=== PATIENT | male | born 1970 | race Two or more races ===

== ENCOUNTER 2024-11-13 21:45 | Emergency (ER) | payer OTHER ==
[~2024-11-13] VITALS: Ht 180.3 cm; Wt 95.5 kg
--- NOTE | 2024-11-13 22:24 | ED.PDOC ---
History of Present Illness HPI Comments 54-year-old male presents with complaint of right shoulder pain, with associated decreased range of motion, after lifting a heavy object at 8:30 p.m., this evening. He denies any history of prior injuries to the right shoulder. Patient denies having any weakness, numbness, tingling, other associated sympto ms or modifiers at this time. Chief Complaint: Upper Extremity Time Seen by MD: 20:00 Reviewed Notes: Nurses Notes, Medications, Allergies Allergies: Coded Allergies: NO KNOWN ALLERGIES (Unverified , 11/13/24) Information Source: Patient Mode of Arrival: Ambulatory Severity: Moderate Timing: Hours Duration: Since onset Prehospital treatment: None Past Medical History PAST MEDICAL HISTORY: Denies Surgical History: Denies all surgeries Family History Family History: Unknown Social History Smoker: Non-Smoker Alcohol: Denies ETOH Use Drugs: Denies Drug Use Lives In: Home Musculoskeletal: reports: others (Right shoulder pain) All Other Systems: Reviewed and Negative (Negative unless otherwise stated above or in HPI) Physical Exam General Appearance: No Apparent Distress, Normal HEENT: Normal ENT Inspection, Pharynx Normal, TMs Normal Neck: Full Range of Motion, Non-Tender, Normal, Normal Inspection Respiratory: Chest Non-Tender, Lungs Clear, No Accessory Muscle Use, No Respiratory Distress, Normal Breath Sounds Cardiovascular: No Edema, No JVD, No Murmur, No Gallop, Normal Peripheral Pulses, Regular Rate/Rhythm Breast Exam: Deferred Gastrointestinal: No Organomegaly, Non Tender, No Pulsatile Mass, Normal Bowel Sounds, Soft Genitalia: Deferred Pelvic: Deferred Rectal: Deferred Extremities: Decreased range of motion (Right shoulder), No calf tenderness, Normal capillary refill, Normal inspection, No pedal edema, Tender (Tenderness to right anterior deltoid,), Other ( positive empty can test) Musculoskeletal : Apperance: Normal Neurologic: Alert, 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 Was a procedure done?: No Differential Dx Considerations may include: Fracture, dislocation, muscle sprain, contusions, bruising, X-Ray, Labs, Meds, VS Vital Signs Date Time Temp Pulse Resp B/P (MAP) Pulse Ox O2 Delivery O2 Flow Rate FiO2 3/3/25 21:51 97.9 73 13 154/91 (468) 97 X-Ray, Labs, Meds, VS Comment IMAGING: X-RAYS AND CT SCANS WERE REVIEWED AND INTERPRETED BY THIS PROVIDER, IMAGING SHOWS NO FRACTURES AND NO PATHOLOGICAL DISEASE. PENDING RADIOLOGY REVIEW. LABORATORY: LABS REVIEWED AND INTERPRETED BY THIS PROVIDER. NO SIGNIFICANT ABNORMALITIES NOTED. PATIENT HAS PRIOR MEDICAL VISITS REVIEWED. MED RECONCILIATION PERFORMED VITAL SIGNS REVIEWED PATIENT PLACED IN SLING, CONCERNED FOR POSSIBLE ROTATOR CUFF DAMAGE, ADVISED HE WILL NEED TO FOLLOW UP WITH PCP FOR ORTHOPEDIC REFERRAL. Time of 1ST Reevaluation: 20:30 Reevaluation 1ST: Unchanged Patient Education/Counseling: Diagnosis, Treatment, Need For Follow Up (FOLLOW UP WITH PCP FOR ORTHOPEDIC REFERRAL) Family Education/Counseling: No Family Present Departure 1 Departure Time of Disposition: 23:08 Impression: Primary Impression: Injury of right rotator cuff Qualified Codes: S46.001A - Unspecified injury of muscle(s) and tendon(s) of the rotator cuff of right shoulder, initial encounter Disposition: HOME / SELF CARE / HOMELESS Condition: Fair e-Prescriptions Ibuprofen Micronized (Ibuprofen) 800 Mg Tab 800 MG PO TID PRN, #60 TAB Prov: CARTER DECKER 11/13/24 Discharged With: Self Critical Care Note Critical Care Time?: No Stability Stability form required: No Heart Score Heart Score: Heart Score Response (Comments) Value History N/A 0 EKG N/A 0 Age N/A 0 Risk Factors N/A 0 Troponin N/A 0 Total 0 I personally scribed for CARTER DECKER ([email or web address]) on 11/13/24 at 22:24. Electronically submitted by Brayan Gates ([email or web address]). CARTER DECKER Nov 13, 2024 22:24
--- NOTE | 2024-11-13 22:59 | DVH ---
CLINICAL INDICATION: INJURY TECHNIQUE: XY R SHOULDER 2+ VIEW XRAY Comparison: None FINDINGS/IMPRESSION: There is no evidence of acute fracture or dislocation. Soft tissues are unremarkable.
[2024-11-13] MEDS ORDERED: IBUP-1455 PO (23:08)
[2024-11-14 00:40] VITALS: BP 146/84; PULSE 68; RESP 18; TEMP 98; O2SAT 98
[2024-11-14] MEDS: methylPREDNISolone SOD SUCC 125 MG/2 ML VL IM ONE (00:41)
[2024-11-14] MEDS: KETOROLAC TROMETH 30 MG/ML 1ML VIAL IM ONE (00:42)
== END 2024-11-14 01:41 | disposition home or self-care (01) ==
LOC: ER 21:45
DX: S46.091A Other injury of muscle(s) and tendon(s) of the rotator cuff of right shoulder, initial encounter (principal); X50.0XXA Overexertion from strenuous movement or load, initial encounter; Y93.89 Activity, other specified; Y92.89 Other specified places as the place of occurrence of the external cause; Y99.8 Other external cause status
CPT/HCPCS: 73030; 96372; 99284; J1885; J2919